=== PATIENT | male | born 1975 | race Caucasian/White ===

== ENCOUNTER 2021-07-10 06:42 | Day surgery (SDC) | payer OTHER ==
[~2021-07-10 06:42] MED LIST: IRBESARTAN150 MG PO
== END 2021-07-10 15:00 | disposition home or self-care (01) ==
LOC: CIR.AMB 06:42
PROVIDERS: ATTEND Orthopaedic Surgery Hand Surgery
DX: M65.342 Trigger finger, left ring finger (principal); M65.332 Trigger finger, left middle finger; Z20.822 Contact with and (suspected) exposure to COVID-19